=== PATIENT | male | born 1935 | race Caucasian/White ===

== ENCOUNTER → 2017-07-08 | Outpatient (CLI) | payer MEDICARE, OTHER ==
[~2017-07-08] MED LIST: BUPIVACAINE MPF 0.5% 30 ML VIAL. ONE; IV RINGERS SOLUTION,LACTATED 1,000 ML IV ONE; LIDOCAINE 1% PF 30 ML VIAL. ONE; MIDAZOLAM HCL PF 2 MG/2 ML VIAL. ONE; methylPREDNISolone ACETATE 40 MG/ML VIAL. ONE
== END | disposition home or self-care (01) ==
LOC: SURG 13:02
PROVIDERS: ATTEND Anesthesiology Pain Medicine
DX: M46.1 Sacroiliitis, not elsewhere classified (principal); E11.9 Type 2 diabetes mellitus without complications; K44.9 Diaphragmatic hernia without obstruction or gangrene; Z88.5 Allergy status to narcotic agent
CPT/HCPCS: 64635; 64636; 82947; J0690; J1030; J2001; J2250; J3010; J3490; J7120

== ENCOUNTER → 2020-08-06 | Outpatient (CLI) | payer MEDICARE, OTHER ==
--- NOTE | 2020-08-06 12:52 | RAD ---
PROCEDURE: FOOT RIGHT 3V CLINICAL INDICATION / HISTORY: Reason: SWOLLEN, FOOT PAIN, NO KNOWN INJURY / Spl. Instructions: / History: . TECHNIQUE: AP, lateral and oblique views of the right foot. COMPARISON: None FINDINGS: No fracture or dislocation is identified. The bone density is normal. The joint space widths are maintained, and there are no erosions to suggest an inflammatory arthropathy. No soft tissue abnormality is seen. Suture material in the dorsum of the distal great toe phalanx is present. IMPRESSION: No acute osseous abnormality. Electronically signed by: Neftaly Vasquez MD (08/06/2020 12:50 PM) [id number]
== END ==
LOC: DXRAD 10:28
PROVIDERS: ATTEND Internal Medicine
DX: S90.31XA Contusion of right foot, initial encounter (principal); X58.XXXA Exposure to other specified factors, initial encounter; Y93.89 Activity, other specified; Y92.89 Other specified places as the place of occurrence of the external cause; Y99.8 Other external cause status
CPT/HCPCS: 73630

== ENCOUNTER → 2021-02-20 | Outpatient (CLI) | payer MEDICARE, OTHER ==
--- NOTE | 2021-02-20 08:47 | RAD ---
EXAMINATION: US ABDOMINAL AORTA SCREENING AAA INDICATION: Reason: AAA / Spl. Instructions: / History: COMPARISON: None TECHNIQUE: Grayscale, color and spectral doppler evaluation of the abdominal aorta and common iliac a rteries was performed. FINDINGS: Limited exam due to overlying bowel gas and patient's body habitus. Visualized abdominal aorta demons trates atherosclerotic calcifications. AORTIC DIAMETERS: Supraceliac: Not visualized due to overlying bowel gas. Juxtarenal AP: 2.1 cm Juxtarenal Transverse: 2.5 cm Velocity: 91 cm/second Bifurcation AP: 3.3 cm Bifurcation Transverse: 3.7 cm Velocity: 112 cm/second IMPRESSION: Mild infrarenal abdominal aortic aneurysm measuring up to 3.7 cm. Abdominal aortic aneurysm measuring 3.5-3.9 cm as above. Recommend follow-up ultrasound or CTA in 2 years per ACR and SVS recommendation s. Electronically signed by: Michael Padilla MD (02/20/2021 8:45 AM) [id number]
== END ==
LOC: US 07:39
PROVIDERS: ATTEND Thoracic Surgery (Cardiothoracic Vascular Surgery)
DX: I71.4 Abdominal aortic aneurysm, without rupture (principal)
CPT/HCPCS: 76770

== ENCOUNTER → 2021-05-17 | Outpatient (CLI) | payer MEDICARE, OTHER ==
--- NOTE | 2021-05-17 15:24 | RAD ---
Exam performed: 3 views right hand. HISTORY: Patient fell 7 weeks ago, complaining of right hand pain. DATE OF SERVICE: 05/17/2021. COMPARISON: None available FINDINGS: AP, lateral and oblique views of the right hand are obtained. Normal alignment is preserved. There is no acute fracture or dislocation. There is mild soft tissue swelling or foreign body seen. IMPRESSION: Soft tissue swelling without underlying bony abnormality. Electronically signed by: Madhavi Velazco MD (05/17/2021 3:21 PM) [id number]
== END ==
LOC: RAD 09:15
PROVIDERS: ATTEND Orthopaedic Surgery
DX: M79.89 Other specified soft tissue disorders (principal)
CPT/HCPCS: 73130